=== PATIENT | female | born 2000 | race Caucasian/White ===

== ENCOUNTER → 2021-08-02 19:50 | Observation (INO) | END | disposition home or self-care (01) | LOC: 1NENULAB | PROVIDERS: ADMIT Advanced Practice Midwife; ATTEND Advanced Practice Midwife ==

== ENCOUNTER 2021-08-04 16:01 | Inpatient (IN) ==
[2021-08-04] MEDS ORDERED: Famotidine 20 MG/2 ML VIAL IVP PRN (17:34)
[2021-08-04] MEDS ORDERED: Naloxone 0.4 MG/ML INJ IVP PRN (17:34)
[2021-08-04] MEDS ORDERED: Metoclopramide 10 MG/2 ML VIAL IVP PRN (17:34)
[2021-08-04] MEDS ORDERED: Ondansetron 4 MG/2 ML VIAL IVP PRN (17:34)
[2021-08-04 18:09] LABS: Basophils % 0.3 %; Eosinophils # 0.2 K/mcL (0.0-0.6); Hematocrit 37.5 % (35.3-44.9); Hemoglobin 12.4 g/dL (11.5-15.4); Immature Granulocytes % 0.7 % (0-4); Lymphocytes # 1.5 K/mcL (0.6-4.6); Lymphocytes % 12.8 %; Mean Corpuscular HGB Conc 33.1 g/dL (31.6-35.5); Mean Corpuscular Hemoglobin 29.8 pg (28.0-33.3); Mean Corpuscular Volume 90.1 fL (83.0-100.0); Mean Platelet Volume 9.2 fL (9.4-12.4); Monocytes # 0.9 K/mcL (0.0-1.3); Monocytes % 7.7 %; Neutrophils # 9.2 K/mcL (1.6-8.9); Platelet Count 281 K/mcL (140-400); Red Blood Count 4.16 M/mcL (3.82-4.97); Red Cell Distribution Width 12.8 % (11.5-14.5); Segmented Neutrophils % 76.5 %
[2021-08-04 18:17] LABS: Amphetamine Screen,Urine Negative ng/mL (Cutoff=1000); Barbiturate Screen,Urine Negative ng/mL (Cutoff=200); Benzodiazepines Screen,Urine Negative ng/mL (Cutoff=200); Cannabinoid Screen,Urine Negative ng/mL (Cutoff = 50); Cocaine Screen,Urine Negative ng/mL (Cutoff= 300); Opiate Screen,Urine Negative ng/mL (Cutoff=300); Phencyclidine Screen,Urine Negative ng/mL (Cutoff=25)
[2021-08-04 19:00] LABS: Influenza A PCR Negative (Negative); Influenza B PCR Negative (Negative); Resp. Syncytial Virus PCR Negative (Negative)
[2021-08-04 19:01] LABS: SARS-CoV-2 by PCR (In House) Negative (Negative)
[2021-08-04] MEDS ORDERED: miSOPROStoL 25 MCG TABLET PO ONE (20:36)
[2021-08-04] MEDS ORDERED: Penicillin G Potassium 5,000,000 UNIT in 0.9 % Sodium Chloride Mini Bag 100 ML IVPB ONE (23:21)
[2021-08-04] MEDS: Ringers Solution, Lactated 1,000 ML IVC SCH (23:53)
[2021-08-05] MEDS ORDERED: miSOPROStoL 25 MCG TABLET PO ONE (01:30)
[2021-08-05] MEDS: Penicillin G Potassium 2,500,000 UNIT/105 ML MLS IVPB SCH ×3 (04:45→13:08)
[2021-08-05] MEDS ORDERED: EPHEDrine 50 MG/ML VIAL IVP PRN (07:39)
[2021-08-05] MEDS ORDERED: *HR* Nalbuphine 10 MG/ML AMPUL IV PRN (07:42)
[2021-08-05] MEDS ORDERED: Epidural Premix (fent/bupiv) 110 ML EP SCH (07:45)
[2021-08-05] MEDS: Oxytocin 30 UNIT/503 ML BAG IVC SCH ×2 (08:14→17:17)
[2021-08-05] MEDS: Ringers Solution, Lactated 1,000 ML IVC SCH (11:55)
[2021-08-05] MEDS ORDERED: Measles/Mumps/Rubella Vacc 0.5 ML VIAL SQ PRN (19:53)
[2021-08-05] MEDS ORDERED: Benzocaine/Menthol 56 GM AEROSOL SPRAY TP PRN (19:53)
[2021-08-05] MEDS ORDERED: Lanolin 7 G OINT...G. TP PRN (19:53)
[2021-08-05] MEDS ORDERED: Ondansetron ODT 4 MG TAB.RAPDIS SL PRN (19:53)
[2021-08-05] MEDS ORDERED: OXYTOCIN/RINGERS LACTATE 10 UNIT/166.6 ML BAG IVC ONE ×2 (19:53→20:45)
[2021-08-05] MEDS: Acetaminophen 325 MG TABLET PO SCH (21:52)
[2021-08-05] MEDS: Ibuprofen 600 MG TABLET PO SCH (21:52)
[2021-08-06] MEDS: Acetaminophen 325 MG TABLET PO SCH ×2 (04:37→11:06)
[2021-08-06] MEDS: Ibuprofen 600 MG TABLET PO SCH ×2 (04:37→11:06)
[2021-08-06 04:57] VITALS: TEMP 98.2
[2021-08-06 05:12] LABS: Basophils # 0.1 K/mcL (0.0-0.2); Basophils % 0.3 %; Eosinophils # 0.3 K/mcL (0.0-0.6); Hematocrit 33.3 % (35.3-44.9); Hemoglobin 11.2 g/dL (11.5-15.4); Immature Granulocytes % 0.6 % (0-4); Lymphocytes # 1.9 K/mcL (0.6-4.6); Lymphocytes % 13.5 %; Mean Corpuscular HGB Conc 33.6 g/dL (31.6-35.5); Mean Corpuscular Hemoglobin 29.9 pg (28.0-33.3); Mean Corpuscular Volume 88.8 fL (83.0-100.0); Mean Platelet Volume 9.2 fL (9.4-12.4); Monocytes # 1.2 K/mcL (0.0-1.3); Monocytes % 8.7 %; Neutrophils # 10.7 K/mcL (1.6-8.9); Platelet Count 231 K/mcL (140-400); Red Blood Count 3.75 M/mcL (3.82-4.97); Red Cell Distribution Width 12.6 % (11.5-14.5); Segmented Neutrophils % 74.9 %; White Blood Count 14.3 K/mcL (4.3-11.1)
[2021-08-06 05:44] VITALS: BP 119/74; PULSE 82; O2SAT 96
[2021-08-06] MEDS ORDERED: Prenatal Vit/FA 1 EACH TABLET PO SCH (09:00)
== END 2021-08-06 18:37 | disposition home or self-care (01) | DRG 806 ==
LOC: 1NENULAB 16:01 → 1NENUOBS 08-05 19:53
PROVIDERS: ADMIT Obstetrics & Gynecology; ATTEND Obstetrics & Gynecology